=== PATIENT | female | born 1935 | race Caucasian/White ===

== ENCOUNTER 2016-06-08 10:42 | Outpatient (CLI) | payer MEDICARE, OTHER | END 2016-06-08 10:44 | LOC: LABRHC 10:42 | PROVIDERS: ATTEND Family Medicine | DX: N39.0 Urinary tract infection, site not specified (principal) | CPT/HCPCS: 87088 ==

== ENCOUNTER 2017-06-06 10:11 | Outpatient (CLI) | payer MEDICARE, OTHER ==
[2017-06-06 11:04] LABS: BASOPHILS % 0.8 (0.0-1.5); MEAN CORPUSCULAR HEMOGLOBIN 33.9 pg (28.0-34.0); MEAN CORPUSCULAR VOLUME 101.9 fl (80.0-100.0); MONOCYTES % 6.3 % (0.0-11.0); NEUTROPHILS # 2.4 # k/uL (1.4-7.7)
[2017-06-06 12:15] LABS: eGFR (African) > 60; eGFR (Non-African) > 60
== END 2017-06-06 10:13 ==
LOC: LAB 10:11
PROVIDERS: ATTEND Family Medicine
DX: E78.00 Pure hypercholesterolemia, unspecified (principal); I10 Essential (primary) hypertension
CPT/HCPCS: 80053; 80061; 85025

== ENCOUNTER 2018-02-11 09:23 | Outpatient (CLI) | payer MEDICARE, OTHER ==
[2018-02-11 19:11] LABS: BASO % 0.7 % (0.0-1.5); EOS % 1.5 % (0.0-6.8); LYMPH ABS # 2.94 thou/uL (0.60-4.00); MCV 100.3 fL (80.0-100.0); MONOCYTE ABS # 0.55 thou/uL (0.00-0.90); PLATELET COUNT 256 thou/uL (130-400)
[2018-02-12 08:31] LABS: ADENOVIRUS F 40/41 NOT DETECTED (Not Detected); ASTROVIRUS NOT DETECTED (Not Detected); C. DIFFICILE (TOXIN A/B) NOT DETECTED (Not Detected); CRYPTOSPORIDIUM NOT DETECTED (Not Detected); CYCLOSPORA CAYETANENSIS NOT DETECTED (Not Detected); ENTAMOEBA HISTOLYTICA NOT DETECTED (Not Detected); GIARDIA LAMBLIA NOT DETECTED (Not Detected); ROTAVIRUS A NOT DETECTED (Not Detected); SAPOVIRUS NOT DETECTED (Not Detected); VIBRIO CHOLERAE NOT DETECTED (Not Detected)
== END 2018-02-11 09:24 ==
LOC: LAB 09:23
PROVIDERS: ATTEND Physician Assistant
DX: R19.7 Diarrhea, unspecified (principal)
CPT/HCPCS: 36415; 85025; 87507

== ENCOUNTER 2019-03-17 11:26 | Outpatient (CLI) | payer MEDICARE, OTHER ==
[2019-03-17 12:29] LABS: BASOPHILS % 0.6 % (0.0-1.5); SEGMENTED NEUTROPHILS % 41 % (39-79)
[2019-03-17 12:41] LABS: HDL 127 mg/dL (>40); eGFR (Non-African) > 60
== END 2019-03-17 11:31 ==
LOC: LAB 11:26
PROVIDERS: ATTEND Family Medicine
DX: I10 Essential (primary) hypertension (principal); E78.00 Pure hypercholesterolemia, unspecified
CPT/HCPCS: 36415; 80053; 80061; 85025